=== PATIENT | female | born 1990 | race Caucasian/White ===

== ENCOUNTER 2017-04-24 10:10 | Outpatient (CLI) | payer OTHER ==
[~2017-04-24] VITALS: Ht 165.1 cm; Wt 63.6 kg
[2017-04-24 10:21] VITALS: BP 107/56
[2017-04-24] MEDS ORDERED: PRENATAL TABLE1 EAC3 PO (11:06)
[2017-04-24 11:37] LABS: ADD MIUA? YES; BILIRUBIN NEGATIVE; BLOOD NEGATIVE; COLOR YELLOW ((YELLOW)); GLUCOSE (STRIP) NEGATIVE; KETONES NEGATIVE; LEUKOCYTES NEGATIVE; NITRITE NEGATIVE; PROTEIN (STRIP) NEGATIVE; SPECIFIC GRAVITY 1.014 (1.000-1.030); UROBILINOGEN 0.2 MG/DL (0.2-1.0)
[2017-04-24 11:42] LABS: BACTERIA RARE /HPF; EPITHELIAL CELLS 1+ /HPF; MUCUS TRACE /LPF; UCUL ADDED? NO; WHITE BLOOD CELLS 0-5 /HPF (0-5)
== END 2017-04-24 11:55 | disposition home or self-care (01) ==
LOC: LDRP-OP 10:10 → 2WEST 10:12 → LDRP-OP 09-04 10:57
PROVIDERS: Advanced Practice Midwife
DX: O26.892 Other specified pregnancy related conditions, second trimester (principal); R10.13 Epigastric pain; Z3A.24 24 weeks gestation of pregnancy
CPT/HCPCS: 59025; 81003; 87086; G0378

== ENCOUNTER 2017-08-03 19:24 | Inpatient (IN) | payer OTHER ==
[2017-08-03] VITALS (16 sets, daily range): BP systolic 97–131; BP diastolic 53–75
[~2017-08-03] VITALS: Ht 165.1 cm; Wt 72.2 kg
[~2017-08-03 19:24] MED LIST: PRENATAL TABLE1 EAC3 PO
[2017-08-03 20:26] LABS: EOSINOPHIL (%) 0.2 % (0-5); HEMATOCRIT 28.1 % (36.0-46.0); IMMATURE GRANULOCYTE (%) 0.7 % (0.0-0.7); IMMATURE GRANULOCYTE COUNT 0.1 K/uL; INSTRUMENT ABS NEUTROPHIL CT 12.4 K/uL; LYMPHOCYTE COUNT 1.9 K/uL (1.0-2.8); MCH 24.4 PG (29.0-34.0); MCV 78.9 FL (83-99); MEAN PLAT.VOLUME 9.6 uM^3 (9.5-12.4); MONOCYTE (%) 5.9 % (3-12); MONOCYTE COUNT 0.9 K/uL (0-0.8); NEUTROPHIL (%) 80.9 % (45-76); NEUTROPHIL COUNT 12.4 K/uL (1.8-6.4); PLATELET COUNT 373 K/uL (156-360); RBC DIS.WIDTH-CV 15.7 % (11.8-14.6); RBC DIS.WIDTH-SD 44.8 % (39-53); RED BLOOD COUNT 3.56 M/uL (3.80-5.20); WHITE BLOOD COUNT 15.4 K/uL (4.1-10.2)
[2017-08-04] VITALS (8 sets, daily range): BP systolic 100–135; BP diastolic 55–65
[2017-08-04] MEDS ORDERED: IBUPROFEN800 MG PO (03:06)
[2017-08-06 07:35] VITALS: BP 113/57
[2017-08-06] MEDS ORDERED: FERROUS SULFAT325 MG PO (08:45)
== END 2017-08-06 22:30 | disposition home or self-care (01) | DRG 775 ==
LOC: LDRP-OP 19:24 → 2WEST 19:26 → LDRP-OP 09-04 12:10
PROVIDERS: Midwife
PROC: 10E0XZZ Delivery of Products of Conception, External Approach (ICD-10-PCS; principal; 2017-08-03)
PROC: 3E0R3BZ Introduction of Anesthetic Agent into Spinal Canal, Percutaneous Approach (ICD-10-PCS; principal; 2017-08-03)
PROC: 00HU33Z Insertion of Infusion Device into Spinal Canal, Percutaneous Approach (ICD-10-PCS; principal; 2017-08-03)
PROC: 0HQ9XZZ Repair Perineum Skin, External Approach (ICD-10-PCS; principal; 2017-08-03)
DX: O70.0 First degree perineal laceration during delivery (principal); O99.02 Anemia complicating childbirth; O99.340 Other mental disorders complicating pregnancy, unspecified trimester; O99.334 Smoking (tobacco) complicating childbirth; F32.9 Major depressive disorder, single episode, unspecified; F17.200 Nicotine dependence, unspecified, uncomplicated; Z37.0 Single live birth; Z3A.39 39 weeks gestation of pregnancy; D50.9 Iron deficiency anemia, unspecified
CPT/HCPCS: 85025; C1755; G0378; J3010; J7120